=== PATIENT | male | born 1965 | race Caucasian/White ===

== ENCOUNTER 2023-04-06 14:44 | Inpatient (IN) | payer MEDICAID, OTHER ==
[~2023-04-06] VITALS: Ht 180.3 cm; Wt 116.8 kg
[2023-04-06] MEDS ORDERED: QUEtiapine FUMARATE 100 MG TABLET PO PRN (15:30)
[2023-04-06] MEDS ORDERED: LORazepam 2 MG TABLET PO PRN (15:30)
[2023-04-06 15:46] LABS: BASOPHILS % (AUTO) 0.2 % (0.0-2.0); EOSINOPHILS % (AUTO) 3.3 % (1.0-6.0); HEMOGLOBIN 15.3 g/dL (13.5-17.5); LYMPHOCYTES # (AUTO) 2.9 K/uL (1.0-4.8); LYMPHOCYTES % (AUTO) 27.8 % (22.0-44.0); MEAN CORPUSCULAR HEMOGLOBIN 30.6 pg (26.0-34.0); MEAN CORPUSCULAR HGB CONC 33.9 G/dL (31.0-37.0); MEAN CORPUSCULAR VOLUME 90 fL (80-100); MONOCYTES % (AUTO) 9.6 % (2.0-9.0); NEUTROPHILS # (AUTO) 6.2 K/uL (1.8-7.7); NEUTROPHILS % (AUTO) 59.1 % (40.0-70.0); PLATELET COUNT (AUTO) 279 K/uL (150-450); RED BLOOD CELL COUNT(AUTO) 4.98 MIL/uL (4.50-5.90); RED CELL DISTRIBUTION WIDTH 13.9 % (11.5-14.5); WHITE BLOOD COUNT (AUTO) 10.5 K/uL (4.5-11.0)
[2023-04-06 15:53] LABS: ANION GAP 7 mmol/L (8-16); CALCIUM, TOTAL 9.6 mg/dL (8.8-10.5); CARBON DIOXIDE 26 mmol/L (22-29); CHLORIDE 101 mmol/L (98-107); CREATININE 1.17 mg/dL (0.60-1.30); GLOMERULAR FILTR. RATE CALC > 60 mL/min (>60); GLUCOSE,RANDOM 101 mg/dL (70-110); POTASSIUM 4.7 mmol/L (3.5-5.1); SODIUM SERUM 134 mmol/L (136-145); UREA NITROGEN, BLOOD 37 mg/dL (7-18)
[2023-04-06 15:55] LABS: ALCOHOL, BLOOD (SERUM) < 3 mg/dL (0-10)
[2023-04-06 15:58] LABS: ALANINE AMINOTRANSFERASE 30 U/L (12-78); ALBUMIN 3.8 g/dL (3.4-5.0); ALKALINE PHOSPHATASE 76 U/L (46-116); ASPARTATE AMINOTRANSFERASE 16 U/L (15-37); BILIRUBIN,TOTAL 0.3 mg/dL (0.1-1.0); TOTAL PROTEIN, SERUM 8.6 g/dL (6.4-8.2)
[2023-04-06 16:02] LABS: COVID AG,FIA SOURCE NASAL SWAB
[2023-04-06 16:20] LABS: SARS-COV2 (COVID) ANTIGEN,FIA Negative (Negative)
[2023-04-06 16:34] LABS: APPEARANCE,URINE CLEAR (CLEAR); BILIRUBIN,URINE NEGATIVE (NEGATIVE); COLOR,URINE LIGHT YELLOW (YELLOW); GLUCOSE, URINE (UA) NEGATIVE (NEGATIVE); KETONES,URINE NEGATIVE (NEGATIVE); LEUKOCYTE ESTERASE ,URINE NEGATIVE (NEGATIVE); NITRATE,URINE NEGATIVE (NEGATIVE); OCCULT BLOOD,URINE NEGATIVE (NEGATIVE); PROTEIN,URINE NEGATIVE (NEGATIVE); SPECIFIC GRAVITIY, URINE 1.024 (1.003-1.030); UROBILINOGEN,URINE <=1.0 mg/dL (<=1.0)
[2023-04-06 16:41] LABS: AMPHET/METH SCREEN,URINE NEGATIVE (NEGATIVE); BARBITURATE SCREEN, URINE NEGATIVE (NEGATIVE); BENZODIAZEPINES SCREEN,URINE NEGATIVE (NEGATIVE); CANNABINOID SCREEN,URINE NEGATIVE (NEGATIVE); COCAINE SCREEN,URINE NEGATIVE (NEGATIVE); METHADONE SCREEN, URINE NEGATIVE (NEGATIVE); OPIATE SCREEN,URINE NEGATIVE (NEGATIVE); PHENCYCLIDINE SCREEN,URINE NEGATIVE (NEGATIVE)
[2023-04-06 16:42] LABS: ALCOHOL, URINE DRUG SCREEN NEGATIVE (NEGATIVE)
[2023-04-08 00:24] VITALS: BP 140/101; PULSE 84; RESP 20; TEMP 97.2; O2SAT 95
[2023-04-08] MEDS ORDERED: INFLUENZA VIRUS VACCINE QVS 2023-24 (6MO+)/PF 60 MCG/0.5 ML SYRINGE IM. ONE (00:30)
[2023-04-08] MEDS ORDERED: ACETAMINOPHEN 325 MG TABLET PO PRN (15:30)
[2023-04-08] MEDS ORDERED: CloNIDine HCL 0.1 MG TABLET PO PRN (15:30)
[2023-04-08] MEDS ORDERED: MAGNESIUM HYDROXIDE SUSPENSION 30 ML UDCUP PO PRN (15:30)
[2023-04-08] MEDS ORDERED: DOCUSATE SODIUM 100 MG CAPSULE PO PRN (15:30)
[2023-04-08] MEDS ORDERED: LOPERAMIDE HCL 2 MG CAPSULE PO PRN (15:30)
[2023-04-08] MEDS ORDERED: MAG HYDROX/ALUMINUM HYD/SIMETH ES 30 ML SUSPENSION UDCUP PO PRN (15:30)
[2023-04-08] MEDS ORDERED: IBUPROFEN 400 MG TABLET PO PRN (15:30)
[2023-04-08] MEDS ORDERED: NICOTINE 14 MG/24 HOUR PATCH TD PRN (15:30)
[2023-04-08] MEDS ORDERED: ALBUTEROL SULFATE HFA 90 MCG/PUFF 8 GM INHALER IH PRN (15:30)
[2023-04-08] MEDS ORDERED: ONDANSETRON HCL 4 MG TABLET PO PRN (15:30)
[2023-04-08] MEDS ORDERED: GuaiFENesin/D-METHORPHAN [SUGAR-FREE] 200-20MG/10 ML SYRUP UDCUP PO PRN (15:30)
[2023-04-08] MEDS ORDERED: PETROLATUM,WHITE 28 GM JELLY TP PRN (15:30)
[2023-04-08 17:03] VITALS: BP 134/81; PULSE 96; RESP 18; TEMP 98.4; O2SAT 96
[2023-04-08] MEDS ORDERED: OLANZapine 5 MG TABLET PO SCH (21:00)
[2023-04-08 21:14] VITALS: BP 130/80; PULSE 80; RESP 18; TEMP 98.1; O2SAT 97
[2023-04-09 06:18] LABS: HEMOGLOBIN A1C 5.9 % (3.8-5.6)
[2023-04-09 06:30] LABS: THYROID STIMULATING HORMONE 1.21 uIU/mL (0.36-3.74)
[2023-04-09 07:24] LABS: CHOL/HDL RATIO 6.3 (4.2-7.3)
[2023-04-09] MEDS: FLUoxetine HCL 20 MG CAPSULE PO SCH (08:10)
[2023-04-09 08:41] VITALS: BP 128/52; PULSE 80; RESP 17; TEMP 97.9; O2SAT 93
[2023-04-09] MEDS ORDERED: ARIPiprazole 5 MG TABLET PO SCH (09:00)
[2023-04-09] MEDS: OLANZapine 10 MG TABLET PO SCH (21:18)
[2023-04-09 21:28] VITALS: RESP 18
[2023-04-10 08:57] VITALS: BP 156/71; PULSE 77; RESP 18; TEMP 97.8; O2SAT 94
[2023-04-10] MEDS: FLUoxetine HCL 20 MG CAPSULE PO SCH (09:03)
[2023-04-10] MEDS: OLANZapine 10 MG TABLET PO SCH (20:30)
[2023-04-10 22:05] VITALS: BP 142/70; PULSE 86; RESP 18; TEMP 97.9
[2023-04-11] MEDS: FLUoxetine HCL 20 MG CAPSULE PO SCH (09:01)
[2023-04-11 10:57] VITALS: BP 126/70; PULSE 84; RESP 18; TEMP 98.1; O2SAT 98
[2023-04-11] MEDS: OLANZapine 10 MG TABLET PO SCH (20:00)
[2023-04-11 20:20] VITALS: BP 104/69; PULSE 95; RESP 18; TEMP 98.2; O2SAT 96
[2023-04-12] MEDS: FLUoxetine HCL 20 MG CAPSULE PO SCH (09:29)
[2023-04-12 10:28] VITALS: BP 129/57; PULSE 85; RESP 16; TEMP 97.8; O2SAT 99
[2023-04-12 20:17] VITALS: BP 131/61; PULSE 81; RESP 18; TEMP 97.7; O2SAT 98
[2023-04-12] MEDS: OLANZapine 10 MG TABLET PO SCH (20:30)
[2023-04-13] MEDS: FLUoxetine HCL 20 MG CAPSULE PO SCH (08:51)
[2023-04-13 10:44] VITALS: BP 142/86; PULSE 85; RESP 18; TEMP 96.7; O2SAT 93
[2023-04-13 20:30] VITALS: BP 120/77; PULSE 74; RESP 18; TEMP 97; O2SAT 98
[2023-04-13] MEDS: OLANZapine 10 MG TABLET PO SCH (21:42)
[2023-04-14 08:00] VITALS: BP 150/82; PULSE 65; RESP 18; TEMP 98.1
[2023-04-14] MEDS: FLUoxetine HCL 20 MG CAPSULE PO SCH (10:58)
[2023-04-14] MEDS: OLANZapine 10 MG TABLET PO SCH (20:34)
[2023-04-14 21:37] VITALS: BP 132/86; PULSE 85; RESP 19; TEMP 97.9; O2SAT 98
[2023-04-15] MEDS: FLUoxetine HCL 20 MG CAPSULE PO SCH (08:39)
[2023-04-15 09:37] VITALS: BP 146/77; PULSE 101; RESP 18; TEMP 98.1; O2SAT 96
[2023-04-15] MEDS: OLANZapine 10 MG TABLET PO SCH (21:20)
[2023-04-15 22:34] VITALS: BP 121/86; PULSE 81; RESP 19; TEMP 97.3; O2SAT 98
[2023-04-16 08:53] VITALS: BP 157/94; PULSE 88; RESP 18; TEMP 98.8; O2SAT 96
[2023-04-16] MEDS: FLUoxetine HCL 20 MG CAPSULE PO SCH (09:52)
[2023-04-16] MEDS: ATORVASTATIN CALCIUM 10 MG TABLET PO SCH (21:00)
[2023-04-16] MEDS: OLANZapine 10 MG TABLET PO SCH (21:00)
[2023-04-16 22:50] VITALS: BP 130/79; PULSE 89; RESP 18; TEMP 97.9
[2023-04-17 08:15] LABS: ANION GAP 8 mmol/L (8-16); CALCIUM, TOTAL 8.9 mg/dL (8.8-10.5); CARBON DIOXIDE 28 mmol/L (22-29); CHLORIDE 104 mmol/L (98-107); CREATININE 1.09 mg/dL (0.60-1.30); GLOMERULAR FILTR. RATE CALC > 60 mL/min (>60); GLUCOSE,RANDOM 105 mg/dL (70-110); POTASSIUM 4.7 mmol/L (3.5-5.1); SODIUM SERUM 139 mmol/L (136-145); UREA NITROGEN, BLOOD 25 mg/dL (7-18)
[2023-04-17] MEDS: FLUoxetine HCL 20 MG CAPSULE PO SCH (10:15)
[2023-04-17 10:36] VITALS: BP 157/76; PULSE 68; RESP 18; TEMP 97.8; O2SAT 95
[2023-04-17 20:14] VITALS: BP 142/86; PULSE 71; RESP 18; TEMP 98.1; O2SAT 99
[2023-04-17] MEDS: OLANZapine 10 MG TABLET PO SCH (20:47)
[2023-04-17] MEDS: ATORVASTATIN CALCIUM 10 MG TABLET PO SCH (20:48)
[2023-04-18] MEDS: FLUoxetine HCL 20 MG CAPSULE PO SCH (09:48)
[2023-04-18 10:00] VITALS: BP 149/94; PULSE 75; RESP 18; TEMP 98.2; O2SAT 95
[2023-04-18 20:48] VITALS: BP 139/77; PULSE 78; RESP 18; TEMP 98; O2SAT 96
[2023-04-18] MEDS: OLANZapine 10 MG TABLET PO SCH (20:53)
[2023-04-18] MEDS: ATORVASTATIN CALCIUM 10 MG TABLET PO SCH (20:53)
[2023-04-19 08:57] VITALS: BP 157/95; PULSE 98; RESP 16; TEMP 98.8; O2SAT 98
[2023-04-19] MEDS: FLUoxetine HCL 20 MG CAPSULE PO SCH (09:05)
[2023-04-19] MEDS: OLANZapine 10 MG TABLET PO SCH (20:50)
[2023-04-19] MEDS: ATORVASTATIN CALCIUM 10 MG TABLET PO SCH (20:50)
[2023-04-19 22:25] VITALS: BP 143/76; PULSE 95; RESP 18; TEMP 98.1
[2023-04-20] MEDS: FLUoxetine HCL 20 MG CAPSULE PO SCH (08:56)
[2023-04-20 09:38] VITALS: BP 150/90; PULSE 83; RESP 19; TEMP 97.9; O2SAT 98
[2023-04-20] MEDS: ATORVASTATIN CALCIUM 10 MG TABLET PO SCH (20:33)
[2023-04-20] MEDS: OLANZapine 10 MG TABLET PO SCH (20:34)
[2023-04-20 22:02] VITALS: BP 135/79; PULSE 80; RESP 18; TEMP 97.8
[2023-04-21] MEDS: FLUoxetine HCL 20 MG CAPSULE PO SCH (09:11)
[2023-04-21 10:26] VITALS: BP 119/71; PULSE 85; RESP 19; TEMP 98.3; O2SAT 95
[2023-04-21] MEDS: ATORVASTATIN CALCIUM 10 MG TABLET PO SCH (20:32)
[2023-04-21] MEDS: OLANZapine 10 MG TABLET PO SCH (20:32)
[2023-04-21 21:05] VITALS: BP 102/60; PULSE 80; RESP 18; TEMP 98
[2023-04-22] MEDS: FLUoxetine HCL 20 MG CAPSULE PO SCH (08:58)
[2023-04-22 10:57] VITALS: BP 124/69; PULSE 81; RESP 18; TEMP 98.2; O2SAT 95
[2023-04-22] MEDS: OLANZapine 10 MG TABLET PO SCH (20:18)
[2023-04-22] MEDS: ATORVASTATIN CALCIUM 10 MG TABLET PO SCH (20:19)
[2023-04-22 20:52] VITALS: BP 122/65; PULSE 64; RESP 18; TEMP 97.8; O2SAT 95
[2023-04-23] MEDS: FLUoxetine HCL 20 MG CAPSULE PO SCH (09:25)
[2023-04-23 16:04] VITALS: BP 143/85; PULSE 74; RESP 17; TEMP 98.2; O2SAT 98
[2023-04-23] MEDS: OLANZapine 10 MG TABLET PO SCH (20:51)
[2023-04-23] MEDS: ATORVASTATIN CALCIUM 10 MG TABLET PO SCH (20:51)
[2023-04-23] MEDS: ZOLPIDEM TARTRATE 10 MG TABLET PO PRN (20:51)
[2023-04-23 21:43] VITALS: BP 161/83; PULSE 85; RESP 18; TEMP 98.4; O2SAT 97
[2023-04-24 08:45] VITALS: BP 167/87; PULSE 68; RESP 18; TEMP 97.7; O2SAT 95
[2023-04-24] MEDS: FLUoxetine HCL 20 MG CAPSULE PO SCH (10:08)
[2023-04-24 20:45] VITALS: BP 115/75; PULSE 70; RESP 18; TEMP 97.9; O2SAT 96
[2023-04-24] MEDS: ATORVASTATIN CALCIUM 10 MG TABLET PO SCH (21:15)
[2023-04-24] MEDS: OLANZapine 10 MG TABLET PO SCH (21:15)
[2023-04-24] MEDS: ZOLPIDEM TARTRATE 10 MG TABLET PO PRN (21:15)
[2023-04-25] MEDS: FLUoxetine HCL 20 MG CAPSULE PO SCH (08:58)
[2023-04-25 10:26] VITALS: BP 114/61; PULSE 77; RESP 18; TEMP 98; O2SAT 98
[2023-04-25 20:25] VITALS: BP 104/59; PULSE 76; RESP 18; TEMP 97.7; O2SAT 95
[2023-04-25] MEDS: OLANZapine 10 MG TABLET PO SCH (21:08)
[2023-04-25] MEDS: ZOLPIDEM TARTRATE 10 MG TABLET PO PRN (21:09)
[2023-04-25] MEDS: ATORVASTATIN CALCIUM 10 MG TABLET PO SCH (21:09)
[2023-04-26 10:12] VITALS: BP 120/76; PULSE 67; RESP 18; TEMP 97.9; O2SAT 95
[2023-04-26] MEDS: FLUoxetine HCL 20 MG CAPSULE PO SCH (11:55)
[2023-04-26 20:50] VITALS: BP 126/88; PULSE 67; RESP 16; TEMP 97.3; O2SAT 97
[2023-04-26] MEDS: ATORVASTATIN CALCIUM 10 MG TABLET PO SCH (21:49)
[2023-04-26] MEDS: OLANZapine 10 MG TABLET PO SCH (21:49)
[2023-04-27 08:11] LABS: ANION GAP 7 mmol/L (8-16); CALCIUM, TOTAL 9.2 mg/dL (8.8-10.5); CARBON DIOXIDE 32 mmol/L (22-29); CHLORIDE 102 mmol/L (98-107); CREATININE 1.04 mg/dL (0.60-1.30); GLOMERULAR FILTR. RATE CALC > 60 mL/min (>60); GLUCOSE,RANDOM 103 mg/dL (70-110); SODIUM SERUM 141 mmol/L (136-145); UREA NITROGEN, BLOOD 22 mg/dL (7-18)
[2023-04-27 09:40] VITALS: BP 144/90; PULSE 91; RESP 18; TEMP 98; O2SAT 96
[2023-04-27] MEDS: FLUoxetine HCL 20 MG CAPSULE PO SCH (09:44)
[2023-04-27] MEDS: OLANZapine 10 MG TABLET PO SCH (20:37)
[2023-04-27] MEDS: ATORVASTATIN CALCIUM 10 MG TABLET PO SCH (20:37)
[2023-04-27 22:55] VITALS: BP 117/72; PULSE 81; RESP 18; TEMP 98.4; O2SAT 95
[2023-04-28] MEDS: FLUoxetine HCL 20 MG CAPSULE PO SCH (11:20)
[2023-04-28 15:13] VITALS: BP 142/87; PULSE 78; RESP 20; TEMP 98.6; O2SAT 95
[2023-04-28] MEDS: OLANZapine 10 MG TABLET PO SCH (20:24)
[2023-04-28] MEDS: ATORVASTATIN CALCIUM 10 MG TABLET PO SCH (20:25)
[2023-04-28 22:59] VITALS: BP 133/74; PULSE 84; RESP 18; TEMP 98.2; O2SAT 97
[2023-04-29] MEDS: FLUoxetine HCL 20 MG CAPSULE PO SCH (08:36)
[2023-04-29 11:18] VITALS: BP 124/95; PULSE 93; RESP 19; TEMP 97.2; O2SAT 95
[2023-04-29] MEDS: ATORVASTATIN CALCIUM 10 MG TABLET PO SCH (21:10)
[2023-04-29] MEDS: OLANZapine 10 MG TABLET PO SCH (21:10)
[2023-04-29 21:50] VITALS: BP 129/60; PULSE 66; RESP 18; TEMP 98.4; O2SAT 92
[2023-04-30] MEDS: FLUoxetine HCL 20 MG CAPSULE PO SCH (08:17)
[2023-04-30 10:28] VITALS: BP 145/109; PULSE 84; RESP 18; TEMP 97.8; O2SAT 95
[2023-04-30] MEDS: OLANZapine 10 MG TABLET PO SCH (21:21)
[2023-04-30] MEDS: ZOLPIDEM TARTRATE 10 MG TABLET PO PRN (21:21)
[2023-04-30] MEDS: ATORVASTATIN CALCIUM 10 MG TABLET PO SCH (21:21)
[2023-04-30 22:36] VITALS: BP 140/80; PULSE 80; RESP 18; TEMP 97.7; O2SAT 98
[2023-05-01 08:00] VITALS: BP 126/94; PULSE 84; RESP 18
[2023-05-01] MEDS: FLUoxetine HCL 20 MG CAPSULE PO SCH (08:24)
[2023-05-01] MEDS: OLANZapine 10 MG TABLET PO SCH (21:15)
[2023-05-01] MEDS: ATORVASTATIN CALCIUM 10 MG TABLET PO SCH (21:15)
[2023-05-01 21:26] VITALS: BP 115/74; PULSE 78; RESP 18; TEMP 97.6; O2SAT 95
[2023-05-02 09:12] VITALS: BP 105/49; PULSE 70; RESP 18; TEMP 97.7; O2SAT 97
[2023-05-02] MEDS: FLUoxetine HCL 20 MG CAPSULE PO SCH (11:08)
[2023-05-02 20:14] VITALS: BP 129/73; PULSE 129; RESP 18; TEMP 97.7
[2023-05-02] MEDS: OLANZapine 10 MG TABLET PO SCH (20:54)
[2023-05-02] MEDS: ATORVASTATIN CALCIUM 10 MG TABLET PO SCH (20:54)
[2023-05-03] MEDS: FLUoxetine HCL 20 MG CAPSULE PO SCH (08:21)
[2023-05-03 09:00] VITALS: BP 118/75; PULSE 89; RESP 18; TEMP 98
[2023-05-03 20:40] VITALS: BP 111/85; PULSE 85; RESP 18; TEMP 97.7; O2SAT 96
[2023-05-03] MEDS: OLANZapine 10 MG TABLET PO SCH (20:55)
[2023-05-03] MEDS: ATORVASTATIN CALCIUM 10 MG TABLET PO SCH (20:56)
[2023-05-04] MEDS: FLUoxetine HCL 20 MG CAPSULE PO SCH (09:48)
[2023-05-04 14:09] VITALS: BP 123/71; PULSE 79; RESP 18; TEMP 98.3
[2023-05-04] MEDS: OLANZapine 10 MG TABLET PO SCH (20:49)
[2023-05-04] MEDS: ATORVASTATIN CALCIUM 10 MG TABLET PO SCH (20:50)
[2023-05-04 21:13] VITALS: BP 120/80; PULSE 81; RESP 19; TEMP 97.8
[2023-05-05 08:40] VITALS: BP 140/69; PULSE 80; RESP 18; TEMP 97.5; O2SAT 98
[2023-05-05] MEDS: FLUoxetine HCL 20 MG CAPSULE PO SCH (10:19)
[2023-05-05 21:28] VITALS: RESP 18
[2023-05-05] MEDS: OLANZapine 10 MG TABLET PO SCH (21:31)
[2023-05-05] MEDS: ATORVASTATIN CALCIUM 10 MG TABLET PO SCH (21:31)
[2023-05-06] MEDS: FLUoxetine HCL 20 MG CAPSULE PO SCH (10:30)
[2023-05-06 11:12] VITALS: BP 112/61; PULSE 71; RESP 14; TEMP 96.7; O2SAT 97
[2023-05-06] MEDS: ATORVASTATIN CALCIUM 10 MG TABLET PO SCH (21:00)
[2023-05-06] MEDS: OLANZapine 10 MG TABLET PO SCH (21:00)
[2023-05-06 22:14] VITALS: BP 117/63; PULSE 85; RESP 18; TEMP 97.7; O2SAT 99
[2023-05-07 08:46] VITALS: BP 133/89; PULSE 85; RESP 16; TEMP 96.3; O2SAT 95
[2023-05-07] MEDS: FLUoxetine HCL 20 MG CAPSULE PO SCH (08:51)
[2023-05-07] MEDS ORDERED: OLAN10TA74 PO (14:42)
[2023-05-07] MEDS ORDERED: FLUO20CA36 PO (14:42)
[2023-05-07] MEDS: ATORVASTATIN CALCIUM 10 MG TABLET PO SCH (20:42)
[2023-05-07] MEDS: OLANZapine 10 MG TABLET PO SCH (20:42)
[2023-05-07 20:50] VITALS: BP 125/72; PULSE 81; RESP 18; TEMP 97.8; O2SAT 97
[2023-05-08 08:12] VITALS: BP 145/90; PULSE 83; RESP 18; TEMP 97.8; O2SAT 97
[2023-05-08] MEDS: FLUoxetine HCL 20 MG CAPSULE PO SCH (08:35)
[2023-05-08] MEDS ORDERED: ATOR10TA PO (08:40)
== END 2023-05-08 10:40 | disposition home or self-care (01) | DRG 751 ==
LOC: EMS 15:12 → 3EI 04-07 22:30 → UNDOADMIN 04-08 00:02 → 3EX 04-08 00:02 → 3EI 04-15 16:31
PROVIDERS: ADMIT Psychiatry & Neurology Psychiatry; ATTEND Psychiatry & Neurology Psychiatry
PROC: GZHZZZZ Group Psychotherapy (ICD-10-PCS; principal; 2023-04-08)
DX: F33.2 Major depressive disorder, recurrent severe without psychotic features (principal); E87.1 Hypo-osmolality and hyponatremia; R45.851 Suicidal ideations; Z96.649 Presence of unspecified artificial hip joint; G47.00 Insomnia, unspecified; E66.9 Obesity, unspecified; Z20.822 Contact with and (suspected) exposure to COVID-19; Z90.81 Acquired absence of spleen; Z68.35 Body mass index [BMI] 35.0-35.9, adult
CPT/HCPCS: 80048; 80053; 80061; 80307; 81003; 83036; 84443; 85025; 87081; 99285; G0378; G0480

== ENCOUNTER 2023-05-23 08:22 | Emergency (ER) | payer MEDICAID, OTHER ==
[~2023-05-23] VITALS: Ht 182.9 cm; Wt 122.7 kg
[~2023-05-23 08:22] MED LIST: ATOR10TA PO; FLUO20CA36 PO; OLAN10TA74 PO
[2023-05-23 08:34] VITALS: TEMP 98.7
[2023-05-23 09:10] LABS: BASOPHILS % (AUTO) 0.6 % (0.0-2.0); EOSINOPHILS % (AUTO) 3.1 % (1.0-6.0); HEMATOCRIT 46.2 % (41-53); HEMOGLOBIN 15.7 g/dL (13.5-17.5); LYMPHOCYTES # (AUTO) 2.3 K/uL (1.0-4.8); LYMPHOCYTES % (AUTO) 21.4 % (22.0-44.0); MEAN CORPUSCULAR HEMOGLOBIN 30.7 pg (26.0-34.0); MEAN CORPUSCULAR HGB CONC 33.9 G/dL (31.0-37.0); MEAN CORPUSCULAR VOLUME 91 fL (80-100); MONOCYTES # (AUTO) 0.8 K/uL (0.1-1.0); NEUTROPHILS # (AUTO) 7.1 K/uL (1.8-7.7); NEUTROPHILS % (AUTO) 66.9 % (40.0-70.0); PLATELET COUNT (AUTO) 266 K/uL (150-450); RED CELL DISTRIBUTION WIDTH 14.8 % (11.5-14.5); WHITE BLOOD COUNT (AUTO) 10.6 K/uL (4.5-11.0)
[2023-05-23 09:22] LABS: PROTHROMBIN TIME 10.5 SEC (9.4-11.6)
[2023-05-23 09:26] LABS: ANION GAP 7 mmol/L (8-16); CARBON DIOXIDE 29 mmol/L (22-29); CHLORIDE 103 mmol/L (98-107); CREATININE 1.01 mg/dL (0.60-1.30); GLOMERULAR FILTR. RATE CALC > 60 mL/min (>60); GLUCOSE,RANDOM 115 mg/dL (70-110); POTASSIUM 4.4 mmol/L (3.5-5.1); SODIUM SERUM 139 mmol/L (136-145); UREA NITROGEN, BLOOD 24 mg/dL (7-18)
[2023-05-23 09:33] LABS: TROPONIN I-HIGH SENSITIVITY 11 ng/L (<76)
[2023-05-23 09:41] LABS: B-TYPE NATRIURETIC PEPTIDE 11 pg/mL (0-100)
[2023-05-23 09:51] LABS: ALANINE AMINOTRANSFERASE 36 U/L (12-78); ALBUMIN 3.4 g/dL (3.4-5.0); ALKALINE PHOSPHATASE 90 U/L (46-116); ASPARTATE AMINOTRANSFERASE 22 U/L (15-37); BILIRUBIN,TOTAL 0.4 mg/dL (0.1-1.0); CREATINE KINASE, TOTAL ONLY 103 U/L (39-308); TOTAL PROTEIN, SERUM 8.4 g/dL (6.4-8.2)
[2023-05-23 12:16] LABS: APPEARANCE,URINE CLEAR (CLEAR); BILIRUBIN,URINE NEGATIVE (NEGATIVE); COLOR,URINE LIGHT YELLOW (YELLOW); GLUCOSE, URINE (UA) NEGATIVE (NEGATIVE); KETONES,URINE NEGATIVE (NEGATIVE); LEUKOCYTE ESTERASE ,URINE NEGATIVE (NEGATIVE); NITRATE,URINE NEGATIVE (NEGATIVE); OCCULT BLOOD,URINE NEGATIVE (NEGATIVE); PH,URINE 5.5 (5.0-8.0); PROTEIN,URINE 30-70 mg/dL (NEGATIVE); SPECIFIC GRAVITIY, URINE 1.025 (1.003-1.030); UROBILINOGEN,URINE <=1.0 mg/dL (<=1.0)
[2023-05-23 15:00] VITALS: BP 132/92; PULSE 78; RESP 18
== END 2023-05-23 15:47 | disposition home or self-care (01) ==
LOC: EMS 08:26
DX: R53.1 Weakness (principal); F32.A Depression, unspecified; F20.9 Schizophrenia, unspecified; Z98.890 Other specified postprocedural states; Z96.649 Presence of unspecified artificial hip joint
CPT/HCPCS: 71045; 80053; 81003; 82550; 83880; 84484; 85025; 85610; 85730; 93005; 99285; 36415-L1; 36415-TC

== ENCOUNTER 2023-06-03 14:47 | Inpatient (IN) | payer MEDICAID, OTHER ==
[~2023-06-03] VITALS: Ht 180.3 cm; Wt 116.7 kg
[2023-06-03 16:17] LABS: BASOPHILS % (AUTO) 0.2 % (0.0-2.0); HEMATOCRIT 47.3 % (41-53); HEMOGLOBIN 15.8 g/dL (13.5-17.5); LYMPHOCYTES # (AUTO) 1.9 K/uL (1.0-4.8); LYMPHOCYTES % (AUTO) 16.7 % (22.0-44.0); MEAN CORPUSCULAR HEMOGLOBIN 30.3 pg (26.0-34.0); MEAN CORPUSCULAR HGB CONC 33.4 G/dL (31.0-37.0); MEAN CORPUSCULAR VOLUME 91 fL (80-100); MONOCYTES # (AUTO) 1.1 K/uL (0.1-1.0); MONOCYTES % (AUTO) 9.9 % (2.0-9.0); NEUTROPHILS # (AUTO) 7.7 K/uL (1.8-7.7); NEUTROPHILS % (AUTO) 67.2 % (40.0-70.0); PLATELET COUNT (AUTO) 294 K/uL (150-450); RED BLOOD CELL COUNT(AUTO) 5.23 MIL/uL (4.50-5.90); RED CELL DISTRIBUTION WIDTH 14.6 % (11.5-14.5); WHITE BLOOD COUNT (AUTO) 11.5 K/uL (4.5-11.0)
[2023-06-03 16:27] LABS: ANION GAP 10 mmol/L (8-16); CALCIUM, TOTAL 9.6 mg/dL (8.8-10.5); CARBON DIOXIDE 28 mmol/L (22-29); CHLORIDE 102 mmol/L (98-107); CREATININE 1.06 mg/dL (0.60-1.30); GLOMERULAR FILTR. RATE CALC > 60 mL/min (>60); GLUCOSE,RANDOM 115 mg/dL (70-110); POTASSIUM 4.4 mmol/L (3.5-5.1); SODIUM SERUM 140 mmol/L (136-145); UREA NITROGEN, BLOOD 19 mg/dL (7-18)
[2023-06-03 16:33] LABS: ALANINE AMINOTRANSFERASE 6 U/L (12-78); ALBUMIN 4.1 g/dL (3.4-5.0); ALCOHOL, BLOOD (SERUM) < 3 mg/dL (0-10); ALKALINE PHOSPHATASE 95 U/L (46-116); ASPARTATE AMINOTRANSFERASE 18 U/L (15-37); BILIRUBIN,TOTAL 0.4 mg/dL (0.1-1.0); TOTAL PROTEIN, SERUM 8.9 g/dL (6.4-8.2)
[2023-06-03] MEDS ORDERED: LORazepam 2 MG TABLET PO PRN (21:15)
[2023-06-03] MEDS ORDERED: ZOLPIDEM TARTRATE 10 MG TABLET PO PRN (21:15)
[2023-06-03] MEDS ORDERED: HALOPERIDOL 5 MG TABLET PO PRN (21:15)
[2023-06-03 21:38] LABS: COVID AG,FIA SOURCE NASAL SWAB
[2023-06-03 21:58] LABS: SARS-COV2 (COVID) ANTIGEN,FIA Negative (Negative)
[2023-06-04 00:24] LABS: PH,URINE DRUG SCREEN 5.5 (5.0-8.0)
[2023-06-04 00:30] LABS: ALCOHOL, URINE DRUG SCREEN NEGATIVE (NEGATIVE); AMPHET/METH SCREEN,URINE NEGATIVE (NEGATIVE); BARBITURATE SCREEN, URINE NEGATIVE (NEGATIVE); BENZODIAZEPINES SCREEN,URINE NEGATIVE (NEGATIVE); CANNABINOID SCREEN,URINE NEGATIVE (NEGATIVE); COCAINE SCREEN,URINE NEGATIVE (NEGATIVE); METHADONE SCREEN, URINE NEGATIVE (NEGATIVE); OPIATE SCREEN,URINE NEGATIVE (NEGATIVE); PHENCYCLIDINE SCREEN,URINE NEGATIVE (NEGATIVE)
[2023-06-04] MEDS ORDERED: MAGNESIUM HYDROXIDE SUSPENSION 30 ML UDCUP PO PRN (07:45)
[2023-06-04] MEDS ORDERED: NICOTINE 14 MG/24 HOUR PATCH TD PRN (07:45)
[2023-06-04] MEDS ORDERED: CloNIDine HCL 0.1 MG TABLET PO PRN (07:45)
[2023-06-04] MEDS ORDERED: PETROLATUM,WHITE 28 GM JELLY TP PRN (07:45)
[2023-06-04] MEDS ORDERED: ONDANSETRON HCL 4 MG TABLET PO PRN (07:45)
[2023-06-04] MEDS ORDERED: LOPERAMIDE HCL 2 MG CAPSULE PO PRN (07:45)
[2023-06-04] MEDS ORDERED: MAG HYDROX/ALUMINUM HYD/SIMETH ES 30 ML SUSPENSION UDCUP PO PRN (07:45)
[2023-06-04] MEDS ORDERED: ACETAMINOPHEN 325 MG TABLET PO PRN (07:45)
[2023-06-04] MEDS ORDERED: DOCUSATE SODIUM 100 MG CAPSULE PO PRN (07:45)
[2023-06-04] MEDS ORDERED: ALBUTEROL SULFATE HFA 90 MCG/PUFF 8 GM INHALER IH PRN (07:45)
[2023-06-04] MEDS ORDERED: GuaiFENesin/D-METHORPHAN [SUGAR-FREE] 200-20MG/10 ML SYRUP UDCUP PO PRN (07:45)
[2023-06-04] MEDS ORDERED: IBUPROFEN 400 MG TABLET PO PRN (07:45)
[2023-06-04 08:18] VITALS: BP 103/62; PULSE 73; RESP 18; TEMP 97.9; O2SAT 95
[2023-06-04 10:39] VITALS: BP 103/62; PULSE 73; RESP 18; TEMP 97.9; O2SAT 95
[2023-06-04] MEDS: FLUoxetine HCL 20 MG CAPSULE PO SCH (12:27)
[2023-06-04] MEDS: ATORVASTATIN CALCIUM 10 MG TABLET PO SCH (20:06)
[2023-06-04] MEDS: OLANZapine 10 MG TABLET PO SCH (20:06)
[2023-06-04 21:06] VITALS: BP 123/71; PULSE 80; RESP 18; TEMP 98.2; O2SAT 96
[2023-06-05 08:15] LABS: HEMOGLOBIN A1C 5.8 % (3.8-5.6)
[2023-06-05] MEDS: FLUoxetine HCL 20 MG CAPSULE PO SCH (08:27)
[2023-06-05 08:41] VITALS: BP 123/72; PULSE 68; RESP 18; TEMP 98; O2SAT 97
[2023-06-05 09:11] LABS: CHOL/HDL RATIO 6.1 (4.2-7.3)
[2023-06-05 21:02] VITALS: BP 130/70; PULSE 76; RESP 16; TEMP 97.8; O2SAT 96
[2023-06-05] MEDS: ATORVASTATIN CALCIUM 10 MG TABLET PO SCH (21:31)
[2023-06-05] MEDS: OLANZapine 10 MG TABLET PO SCH (21:31)
[2023-06-06 08:18] VITALS: BP 112/58; PULSE 68; RESP 18; TEMP 96.8; O2SAT 98
[2023-06-06] MEDS: FLUoxetine HCL 20 MG CAPSULE PO SCH (08:23)
[2023-06-06] MEDS: CEPHALEXIN MONOHYDRATE 500 MG CAPSULE PO SCH (19:23)
[2023-06-06] MEDS: OLANZapine 10 MG TABLET PO SCH (21:49)
[2023-06-06] MEDS: ATORVASTATIN CALCIUM 10 MG TABLET PO SCH (21:50)
[2023-06-07 00:22] VITALS: BP 129/69; PULSE 74; RESP 17; TEMP 98.2; O2SAT 99
[2023-06-07 08:08] VITALS: BP 118/60; PULSE 78; RESP 18; TEMP 98; O2SAT 95
[2023-06-07] MEDS: BACITRACIN 28 GM OINTMENT TP SCH ×2 (08:19→16:09)
[2023-06-07] MEDS: CEPHALEXIN MONOHYDRATE 500 MG CAPSULE PO SCH ×3 (08:19→16:09)
[2023-06-07] MEDS: FLUoxetine HCL 20 MG CAPSULE PO SCH (08:19)
[2023-06-07] MEDS: ATORVASTATIN CALCIUM 10 MG TABLET PO SCH (20:13)
[2023-06-07] MEDS: OLANZapine 10 MG TABLET PO SCH (20:13)
[2023-06-07 20:23] VITALS: BP 112/68; PULSE 71; RESP 16; TEMP 98.2; O2SAT 97
[2023-06-08 08:13] VITALS: BP 122/70; PULSE 88; RESP 18; TEMP 98.2; O2SAT 100
[2023-06-08] MEDS: BACITRACIN 28 GM OINTMENT TP SCH ×2 (08:18→16:24)
[2023-06-08] MEDS: CEPHALEXIN MONOHYDRATE 500 MG CAPSULE PO SCH ×3 (08:18→16:24)
[2023-06-08] MEDS: FLUoxetine HCL 20 MG CAPSULE PO SCH (08:18)
[2023-06-08 20:05] VITALS: BP 112/60; PULSE 77; RESP 18; TEMP 98.3; O2SAT 98
[2023-06-08] MEDS: OLANZapine 10 MG TABLET PO SCH (21:33)
[2023-06-08] MEDS: ATORVASTATIN CALCIUM 10 MG TABLET PO SCH (21:33)
[2023-06-09] MEDS: FLUoxetine HCL 20 MG CAPSULE PO SCH (08:14)
[2023-06-09] MEDS: CEPHALEXIN MONOHYDRATE 500 MG CAPSULE PO SCH ×3 (08:14→16:43)
[2023-06-09] MEDS: BACITRACIN 28 GM OINTMENT TP SCH ×2 (08:15→16:43)
[2023-06-09 08:22] VITALS: BP 128/86; PULSE 87; RESP 18; TEMP 97.8; O2SAT 97
[2023-06-09 20:03] VITALS: BP 109/69; PULSE 70; RESP 17; TEMP 98.3; O2SAT 96
[2023-06-09] MEDS: OLANZapine 10 MG TABLET PO SCH (20:14)
[2023-06-09] MEDS: ATORVASTATIN CALCIUM 10 MG TABLET PO SCH (20:14)
[2023-06-10 07:36] LABS: BASOPHILS % (AUTO) 1.3 % (0.0-2.0); EOSINOPHILS % (AUTO) 7.5 % (1.0-6.0); HEMATOCRIT 44.7 % (41-53); HEMOGLOBIN 15.2 g/dL (13.5-17.5); LYMPHOCYTES # (AUTO) 2.9 K/uL (1.0-4.8); LYMPHOCYTES % (AUTO) 28.5 % (22.0-44.0); MEAN CORPUSCULAR HEMOGLOBIN 30.2 pg (26.0-34.0); MEAN CORPUSCULAR HGB CONC 33.9 G/dL (31.0-37.0); MEAN CORPUSCULAR VOLUME 89 fL (80-100); MONOCYTES # (AUTO) 1.1 K/uL (0.1-1.0); MONOCYTES % (AUTO) 11.3 % (2.0-9.0); NEUTROPHILS # (AUTO) 5.2 K/uL (1.8-7.7); NEUTROPHILS % (AUTO) 51.4 % (40.0-70.0); PLATELET COUNT (AUTO) 330 K/uL (150-450); RED BLOOD CELL COUNT(AUTO) 5.01 MIL/uL (4.50-5.90); RED CELL DISTRIBUTION WIDTH 14.2 % (11.5-14.5)
[2023-06-10 07:46] LABS: APPEARANCE,URINE CLEAR (CLEAR)
[2023-06-10 07:47] LABS: BILIRUBIN,URINE NEGATIVE (NEGATIVE); COLOR,URINE YELLOW (YELLOW); GLUCOSE, URINE (UA) NEGATIVE (NEGATIVE); KETONES,URINE NEGATIVE (NEGATIVE); LEUKOCYTE ESTERASE ,URINE NEGATIVE (NEGATIVE); NITRATE,URINE NEGATIVE (NEGATIVE); OCCULT BLOOD,URINE NEGATIVE (NEGATIVE); PROTEIN,URINE NEGATIVE (NEGATIVE); SPECIFIC GRAVITIY, URINE 1.028 (1.003-1.030); UROBILINOGEN,URINE <=1.0 mg/dL (<=1.0)
[2023-06-10 07:53] LABS: ALCOHOL, URINE DRUG SCREEN NEGATIVE (NEGATIVE); AMPHET/METH SCREEN,URINE NEGATIVE (NEGATIVE); BARBITURATE SCREEN, URINE NEGATIVE (NEGATIVE); BENZODIAZEPINES SCREEN,URINE NEGATIVE (NEGATIVE); CANNABINOID SCREEN,URINE NEGATIVE (NEGATIVE); COCAINE SCREEN,URINE NEGATIVE (NEGATIVE); METHADONE SCREEN, URINE NEGATIVE (NEGATIVE); OPIATE SCREEN,URINE NEGATIVE (NEGATIVE); PHENCYCLIDINE SCREEN,URINE NEGATIVE (NEGATIVE)
[2023-06-10 08:55] VITALS: BP 116/64; PULSE 78; RESP 16; TEMP 98.1; O2SAT 96
[2023-06-10] MEDS: BACITRACIN 28 GM OINTMENT TP SCH ×2 (09:02→16:17)
[2023-06-10] MEDS: FLUoxetine HCL 20 MG CAPSULE PO SCH (09:02)
[2023-06-10] MEDS: CEPHALEXIN MONOHYDRATE 500 MG CAPSULE PO SCH ×3 (09:02→16:17)
[2023-06-10] MEDS: ATORVASTATIN CALCIUM 10 MG TABLET PO SCH (20:07)
[2023-06-10] MEDS: OLANZapine 10 MG TABLET PO SCH (20:07)
[2023-06-10 20:57] VITALS: BP 101/60; PULSE 69; RESP 18; TEMP 98.1; O2SAT 95
[2023-06-10 23:11] LABS: GLUCOMETER DEV NAME(LOC) POC.BV; POC SARS-COV2 AG, FIA NEGATIVE (NEGATIVE)
[2023-06-11 08:05] VITALS: BP 113/67; PULSE 84; RESP 17; TEMP 98.3; O2SAT 97
[2023-06-11] MEDS: FLUoxetine HCL 20 MG CAPSULE PO SCH (08:34)
[2023-06-11] MEDS: CEPHALEXIN MONOHYDRATE 500 MG CAPSULE PO SCH ×3 (08:34→16:42)
[2023-06-11] MEDS: BACITRACIN 28 GM OINTMENT TP SCH ×2 (09:00→16:41)
[2023-06-11] MEDS: ATORVASTATIN CALCIUM 10 MG TABLET PO SCH (20:32)
[2023-06-11] MEDS: OLANZapine 10 MG TABLET PO SCH (20:32)
[2023-06-11 21:14] VITALS: BP 105/69; PULSE 76; RESP 17; TEMP 97.5; O2SAT 96
[2023-06-12] MEDS: FLUoxetine HCL 20 MG CAPSULE PO SCH (08:15)
[2023-06-12] MEDS: CEPHALEXIN MONOHYDRATE 500 MG CAPSULE PO SCH ×3 (08:15→16:30)
[2023-06-12] MEDS: BACITRACIN 28 GM OINTMENT TP SCH ×2 (08:17→16:30)
[2023-06-12 08:28] VITALS: BP 115/67; PULSE 73; RESP 19; TEMP 98.2; O2SAT 95
[2023-06-12 20:02] VITALS: BP 118/69; PULSE 80; RESP 17; TEMP 98.3; O2SAT 96
[2023-06-12] MEDS: OLANZapine 10 MG TABLET PO SCH (20:14)
[2023-06-12] MEDS: ATORVASTATIN CALCIUM 10 MG TABLET PO SCH (20:14)
[2023-06-13] MEDS: CEPHALEXIN MONOHYDRATE 500 MG CAPSULE PO SCH ×3 (08:03→16:03)
[2023-06-13] MEDS: FLUoxetine HCL 20 MG CAPSULE PO SCH (08:03)
[2023-06-13] MEDS: BACITRACIN 28 GM OINTMENT TP SCH ×2 (08:04→16:04)
[2023-06-13 08:05] VITALS: BP 138/98; PULSE 80; RESP 18; TEMP 97.9; O2SAT 95
[2023-06-13] MEDS: OLANZapine 10 MG TABLET PO SCH (20:02)
[2023-06-13] MEDS: ATORVASTATIN CALCIUM 10 MG TABLET PO SCH (20:02)
[2023-06-13 22:52] VITALS: BP 118/65; PULSE 85; RESP 18; TEMP 97.7; O2SAT 97
[2023-06-14 08:25] VITALS: BP 129/66; PULSE 74; RESP 18; TEMP 98.9; O2SAT 97
[2023-06-14] MEDS: BACITRACIN 28 GM OINTMENT TP SCH ×2 (08:37→16:07)
[2023-06-14] MEDS: CEPHALEXIN MONOHYDRATE 500 MG CAPSULE PO SCH ×2 (08:37→12:34)
[2023-06-14] MEDS: FLUoxetine HCL 20 MG CAPSULE PO SCH (08:37)
[2023-06-14] MEDS: ATORVASTATIN CALCIUM 10 MG TABLET PO SCH (20:29)
[2023-06-14] MEDS: OLANZapine 10 MG TABLET PO SCH (20:29)
[2023-06-14 22:03] VITALS: BP 113/63; PULSE 78; RESP 18; TEMP 97.6; O2SAT 95
[2023-06-15 08:34] VITALS: BP 125/90; PULSE 75; RESP 18; TEMP 97.6; O2SAT 97
[2023-06-15] MEDS: BACITRACIN 28 GM OINTMENT TP SCH ×2 (08:45→16:37)
[2023-06-15] MEDS: FLUoxetine HCL 20 MG CAPSULE PO SCH (08:45)
[2023-06-15] MEDS: ATORVASTATIN CALCIUM 10 MG TABLET PO SCH (20:28)
[2023-06-15] MEDS: OLANZapine 10 MG TABLET PO SCH (20:28)
[2023-06-15 20:43] VITALS: BP 128/64; PULSE 62; RESP 18; TEMP 97.8; O2SAT 96
[2023-06-16 08:12] VITALS: BP 122/74; PULSE 78; RESP 16; TEMP 98.3; O2SAT 96
[2023-06-16] MEDS: FLUoxetine HCL 20 MG CAPSULE PO SCH (08:58)
[2023-06-16] MEDS: BACITRACIN 28 GM OINTMENT TP SCH ×2 (08:58→16:25)
[2023-06-16 20:18] VITALS: BP 118/78; PULSE 67; RESP 17; TEMP 98.3; O2SAT 97
[2023-06-16] MEDS: OLANZapine 10 MG TABLET PO SCH (20:30)
[2023-06-16] MEDS: ATORVASTATIN CALCIUM 10 MG TABLET PO SCH (20:30)
[2023-06-17] MEDS: FLUoxetine HCL 20 MG CAPSULE PO SCH (08:14)
[2023-06-17] MEDS: BACITRACIN 28 GM OINTMENT TP SCH ×2 (08:15→16:11)
[2023-06-17 08:29] VITALS: BP 109/67; PULSE 79; RESP 18; TEMP 97.8; O2SAT 97
[2023-06-17 21:05] VITALS: BP 106/60; PULSE 72; RESP 18; TEMP 97.6; O2SAT 97
[2023-06-17] MEDS: ATORVASTATIN CALCIUM 10 MG TABLET PO SCH (21:44)
[2023-06-17] MEDS: OLANZapine 10 MG TABLET PO SCH (21:45)
[2023-06-18] MEDS: FLUoxetine HCL 20 MG CAPSULE PO SCH (08:05)
[2023-06-18] MEDS: BACITRACIN 28 GM OINTMENT TP SCH ×2 (08:06→17:00)
[2023-06-18 08:12] VITALS: BP 125/84; PULSE 74; RESP 19; TEMP 97.6; O2SAT 97
[2023-06-18] MEDS: OLANZapine 10 MG TABLET PO SCH (20:38)
[2023-06-18] MEDS: ATORVASTATIN CALCIUM 10 MG TABLET PO SCH (20:38)
[2023-06-18 20:55] VITALS: BP 130/72; PULSE 74; RESP 17; TEMP 97.6
[2023-06-19 08:31] VITALS: BP 122/82; PULSE 65; RESP 18; TEMP 97.5; O2SAT 96
[2023-06-19] MEDS: FLUoxetine HCL 20 MG CAPSULE PO SCH (08:45)
[2023-06-19] MEDS: BACITRACIN 28 GM OINTMENT TP SCH ×2 (08:45→16:48)
[2023-06-19 20:06] VITALS: BP 128/72; PULSE 60; RESP 16; TEMP 98.5; O2SAT 95
[2023-06-19] MEDS: OLANZapine 10 MG TABLET PO SCH (20:24)
[2023-06-19] MEDS: ATORVASTATIN CALCIUM 10 MG TABLET PO SCH (20:25)
[2023-06-20 08:03] VITALS: BP 123/60; PULSE 70; RESP 16; TEMP 97.4; O2SAT 96
[2023-06-20] MEDS: FLUoxetine HCL 20 MG CAPSULE PO SCH (08:12)
[2023-06-20] MEDS: BACITRACIN 28 GM OINTMENT TP SCH ×2 (08:12→16:24)
[2023-06-20] MEDS: OLANZapine 10 MG TABLET PO SCH (20:02)
[2023-06-20] MEDS: ATORVASTATIN CALCIUM 10 MG TABLET PO SCH (20:02)
[2023-06-21 03:14] VITALS: BP 130/65; PULSE 67; RESP 18; TEMP 97.1; O2SAT 97
[2023-06-21 08:06] VITALS: BP 115/63; PULSE 65; RESP 16; TEMP 97.6; O2SAT 95
[2023-06-21] MEDS: FLUoxetine HCL 20 MG CAPSULE PO SCH (08:25)
[2023-06-21] MEDS: BACITRACIN 28 GM OINTMENT TP SCH ×2 (08:26→16:22)
[2023-06-21] MEDS: ATORVASTATIN CALCIUM 10 MG TABLET PO SCH (20:16)
[2023-06-21] MEDS: OLANZapine 10 MG TABLET PO SCH (20:16)
[2023-06-22 00:18] VITALS: BP 125/68; PULSE 68; RESP 17; TEMP 98; O2SAT 98
[2023-06-22 08:08] VITALS: BP 116/62; PULSE 73; RESP 16; TEMP 97.5; O2SAT 96
[2023-06-22] MEDS: BACITRACIN 28 GM OINTMENT TP SCH ×2 (08:17→16:33)
[2023-06-22] MEDS: FLUoxetine HCL 20 MG CAPSULE PO SCH (08:17)
[2023-06-22] MEDS: OLANZapine 10 MG TABLET PO SCH (20:03)
[2023-06-22] MEDS: ATORVASTATIN CALCIUM 10 MG TABLET PO SCH (20:04)
[2023-06-22 20:15] VITALS: BP 114/76; PULSE 67; RESP 17; TEMP 98; O2SAT 97
[2023-06-23] MEDS: FLUoxetine HCL 20 MG CAPSULE PO SCH (08:10)
[2023-06-23] MEDS: BACITRACIN 28 GM OINTMENT TP SCH ×2 (08:12→16:12)
[2023-06-23 08:22] VITALS: BP 112/61; PULSE 81; RESP 18; TEMP 97.5; O2SAT 90
[2023-06-23 20:48] VITALS: BP 105/59; PULSE 71; RESP 18; TEMP 98.1; O2SAT 92
[2023-06-23] MEDS: ATORVASTATIN CALCIUM 10 MG TABLET PO SCH (21:56)
[2023-06-23] MEDS: OLANZapine 10 MG TABLET PO SCH (21:57)
[2023-06-24 08:41] VITALS: BP 163/68; PULSE 73; RESP 18; TEMP 97.8; O2SAT 98
[2023-06-24] MEDS: FLUoxetine HCL 20 MG CAPSULE PO SCH (08:43)
[2023-06-24] MEDS: BACITRACIN 28 GM OINTMENT TP SCH ×2 (08:43→16:16)
[2023-06-24] MEDS: ATORVASTATIN CALCIUM 10 MG TABLET PO SCH (20:19)
[2023-06-24] MEDS: OLANZapine 10 MG TABLET PO SCH (20:19)
[2023-06-24 21:33] VITALS: TEMP 97.8
[2023-06-25 08:27] VITALS: BP 117/75; PULSE 70; RESP 17; TEMP 97.1; O2SAT 97
[2023-06-25] MEDS: BACITRACIN 28 GM OINTMENT TP SCH ×2 (09:10→16:50)
[2023-06-25] MEDS: FLUoxetine HCL 20 MG CAPSULE PO SCH (09:10)
[2023-06-25 20:06] VITALS: BP 130/72; PULSE 76; RESP 16; TEMP 97.9
[2023-06-25] MEDS: ATORVASTATIN CALCIUM 10 MG TABLET PO SCH (20:36)
[2023-06-25] MEDS: OLANZapine 10 MG TABLET PO SCH (20:36)
[2023-06-26 08:25] VITALS: BP 116/72; PULSE 79; RESP 18; TEMP 98.2; O2SAT 95
[2023-06-26] MEDS: BACITRACIN 28 GM OINTMENT TP SCH ×2 (09:02→17:31)
[2023-06-26] MEDS: FLUoxetine HCL 20 MG CAPSULE PO SCH (09:02)
[2023-06-26 14:16] LABS: GLUCOMETER DEV NAME(LOC) POC.BV; POC SARS-COV2 AG, FIA NEGATIVE (NEGATIVE)
[2023-06-26 20:14] VITALS: BP 109/64; PULSE 72; RESP 16; TEMP 97.8; O2SAT 99
[2023-06-26] MEDS: ATORVASTATIN CALCIUM 10 MG TABLET PO SCH (20:26)
[2023-06-26] MEDS: OLANZapine 10 MG TABLET PO SCH (20:26)
[2023-06-27 08:58] VITALS: BP 134/57; PULSE 72; RESP 18; TEMP 98.2; O2SAT 96
[2023-06-27] MEDS: BACITRACIN 28 GM OINTMENT TP SCH (09:00)
[2023-06-27] MEDS: FLUoxetine HCL 20 MG CAPSULE PO SCH (10:30)
[2023-06-27] MEDS ORDERED: FLUO20CA36 PO ×2 (10:40→12:42)
[2023-06-27] MEDS ORDERED: OLAN10TA74 PO ×2 (10:42→12:42)
[2023-06-27] MEDS ORDERED: ATOR10TA PO (10:44)
== END 2023-06-27 14:03 | disposition home or self-care (01) | DRG 750 ==
LOC: EMS 14:47 → B2S 06-04 00:27
PROVIDERS: ADMIT Psychiatry & Neurology Psychiatry; ATTEND Psychiatry & Neurology Psychiatry
PROC: GZHZZZZ Group Psychotherapy (ICD-10-PCS; principal; 2023-06-04)
DX: F25.1 Schizoaffective disorder, depressive type (principal); F33.2 Major depressive disorder, recurrent severe without psychotic features; R45.851 Suicidal ideations; G47.00 Insomnia, unspecified; D72.829 Elevated white blood cell count, unspecified; Z96.649 Presence of unspecified artificial hip joint; E78.5 Hyperlipidemia, unspecified; R73.9 Hyperglycemia, unspecified; Z20.822 Contact with and (suspected) exposure to COVID-19; F41.9 Anxiety disorder, unspecified; Z79.899 Other long term (current) drug therapy; Z90.81 Acquired absence of spleen
CPT/HCPCS: 80053; 80061; 80307; 81003; 83036; 84443; 85025; 87081; 99285; G0480